=== PATIENT | female | born 1975 | race Caucasian/White ===

== ENCOUNTER 2019-11-29 08:39 | Outpatient (CLI) | payer OTHER ==
[2019-11-29] MEDS ORDERED: GADOTERATE 7.5 MMOL/15 ML VIAL ONE (10:38)
== END 2019-11-29 23:59 | disposition home or self-care (01) ==
LOC: CFH 08:39
PROVIDERS: ATTEND Obstetrics & Gynecology
DX: Z15.01 Genetic susceptibility to malignant neoplasm of breast (principal); Z85.3 Personal history of malignant neoplasm of breast
CPT/HCPCS: 77049; A9575; C8908; C8937

== ENCOUNTER 2020-09-28 08:32 | Outpatient (CLI) | payer OTHER | END 2020-09-28 23:59 | disposition home or self-care (01) | LOC: CFH 08:32 | PROVIDERS: ATTEND Obstetrics & Gynecology | DX: Z12.31 Encounter for screening mammogram for malignant neoplasm of breast (principal) | CPT/HCPCS: 77063; 77067 ==